=== PATIENT | female | born 1995 | race Caucasian/White ===

== ENCOUNTER 2019-01-12 13:38 | Emergency (ER) | payer OTHER ==
[2019-01-12 13:44] VITALS: BP 147/92
--- NOTE | 2019-01-12 14:13 | XRAY Report ---
Reason: pain/swelling Procedure Date: 01/12/2019 Accession Number: [id number] / [id number] Procedure: XR - Ankle 3 View RT CPT Code: FULL RESULT: EXAM: RIGHT ANKLE RADIOGRAPHY EXAM DATE: 01/12/2019 01:57 PM. CLINICAL HISTORY: Pain/swelling. COMPARISON: None. TECHNIQUE: 3 views. FINDINGS: Bones: Normal. No fractures or bone lesions. Joints: Normal. No effusion. No subluxations. The ankle mortise is normally aligned. Soft Tissues: Moderate soft tissue swelling is seen at right ankle. IMPRESSION: Moderate soft tissue swelling of right ankle. No acute displaced fracture or malalignment. RADIA
--- NOTE | 2019-01-12 14:21 | ED Physician Documentation ---
PD HPI LOWER EXT INJURY - Stated complaint Stated Complaint: ANKLE INJURY - Chief complaint Chief Complaint: Trauma Ext - History obtained from History obtained from: Patient - History of Present Illness PD HPI LOW EXT INJURY LOCATION: Right, Ankle Type of injury: Twist (inversion) Timing - onset: Today Timing - details: Abrupt onset, Still present (has swelling and bruising, and pain with weight bearing.) Worsened by: Moving Associated symptoms: Swelling, Discolored. No: Weakness, Numbness Similar symptoms before: Has not had sx before Recently seen: Not recently seen Review of Systems Skin: denies: Abrasion (s), Laceration (s) Musculoskeletal: reports: Joint swelling Neurologic: denies: Focal weakness, Numbness PD PAST MEDICAL HISTORY - Past Medical History Musculoskeletal: None - Present Medications Home Medications: Ambulatory Orders Medication Instructions Recorded Confirmed Hydrocodone/Acetaminophen [[place] 1 each PO Q6H PRN #12 tablet 01/12/19 5-325 Tablet] Naproxen 500 mg PO BID #20 tablet 01/12/19 - Allergies Allergies/Adverse Reactions: Allergies Allergy/AdvReac Type Severity Reaction Status Date / Time No Known Drug Allergies Allergy Verified 01/12/19 13:44 PD ED PE NORMAL - Vitals Vital signs reviewed: Yes - General General: Alert and oriented X 3, No acute distress, Well developed/nourished - Derm Derm: Normal color, Warm and dry - Extremities Extremities: Other (right ankle with lateral swelling and ecchymosis with significant swelling. Inversion stress painful so limited exam. Achilles not tender. Medially not tender, so seems like stable mortis. Foot not tender. ) - Neuro Neuro: Alert and oriented X 3, No motor deficit, No sensory deficit, Other (good color and cap refill in toes. ) Results - Vitals Vitals: Vital Signs - 24 hr 01/12/19 13:42 Temperature 37.0 C Heart Rate 96 Respiratory 17 Rate Blood Pressure 147/92 H O2 Saturation 100 Oxygen O2 Source Room air - Rads (name of study) right ankle Radiology: Prelim report reviewed (no fractures), EMP read contemporaneously, See rad report PD MEDICAL DECISION MAKING - ED course Complexity details: considered differential, d/w patient (has swelling and bruising laterally, so presume some partial ligament tears at least. Exam drake ited due to swelling and tenderness. No gross laxity noted. ) Departure - Departure Disposition: 01 Home, Self Care Clinical Impression: Moderate ankle sprain Qualifiers: Encounter type: initial encounter Laterality: right Qualified Code(s): S93.401A - Sprain of unspecified ligament of right ankle, initial encounter Condition: Stable Record reviewed to determine appropriate education?: Yes Instructions: ED Sprain Ankle W X Ray Prescriptions: Hydrocodone/Acetaminophen [[place] 5-325 Tablet] 1 each PO Q6H PRN #12 tablet PRN Reason: Pain Naproxen 500 mg PO BID #20 tablet Comments: Use the Kermit wrap as well as elevate and ice often to reduce swelling. Use the ankle brace when up and around for the next 3-4 weeks until well-healed. Crutches initially for the pain of weightbearing but is okay to progress weightbearing as tolerated over the next week or so. Naproxen or ibuprofen twice daily for pain and inflammation. Add Tylenol or hydrocodone as needed for pain. Follow-up if not well improved over the next week. This may take 3-4 weeks to fully heal up however. Discharge Date/Time: 01/12/19 15:02
[2019-01-12] MEDS ORDERED: HYDROcod/ACETAM 5/325 MG TABLET PO STA (14:48)
[2019-01-12] MEDS ORDERED: NAPROXEN 250 MG TABLET PO STA (14:48)
== END 2019-01-12 15:02 | disposition home or self-care (01) ==
LOC: ED 13:38
DX: S93.401A Sprain of unspecified ligament of right ankle, initial encounter (principal); X50.1XXA Overexertion from prolonged static or awkward postures, initial encounter
CPT/HCPCS: 73610; 99283; A9270

== ENCOUNTER 2019-01-28 18:51 | Emergency (ER) | payer OTHER ==
--- NOTE | 2019-01-28 19:12 | ED Physician Documentation ---
PD HPI FEMALE - Stated complaint Stated Complaint: FEMALE /BACK PX - Chief complaint Chief Complaint: UTI - History obtained from History obtained from: Patient - History of Present Illness Timing - onset: Other (2 days urinary frequency and burning. Has LBP with this, but no flank pain.) Review of Systems Ten Systems: 10 systems reviewed and negative Constitutional: denies: Fever, Chills GI: reports: Abdominal Pain. denies: Nausea, Vomiting : reports: Dysuria, Frequency PD PAST MEDICAL HISTORY - Past Medical History Musculoskeletal: None - Present Medications Home Medications: Ambulatory Orders Medication Instructions Recorded Confirmed Phenazopyridine HCl [Pyridium] 200 mg PO TID PRN #6 tablet 01/28/19 Sulfamethoxazole/Trimethoprim 1 each PO BID #14 tablet 01/28/19 [Sulfamethoxazole-Tmp Ds Tablet] - Allergies Allergies/Adverse Reactions: Allergies Allergy/AdvReac Type Severity Reaction Status Date / Time No Known Drug Allergies Allergy Verified 01/28/19 19:01 - Social History Does the pt smoke?: No Smoking Status: Never smoker Does the pt drink ETOH?: Yes Does the pt have substance abuse?: No PD ED PE NORMAL - Vitals Vital signs reviewed: Yes - General General: Alert and oriented X 3, No acute distress - Abdomen Abdomen: Normal bowel sounds, Soft, Non tender - Back Back: Other (R>L CVAT) - Extremities Extremities: No edema, No calf tenderness / cord - Neuro Neuro: Alert and oriented X 3, Normal speech - Psych Psych: Normal mood, Normal affect Results - Vitals Vitals: Vital Signs - 24 hr 01/28/19 01/28/19 18:57 19:35 Temperature 36.8 C 37.1 C Heart Rate 115 H 100 Respiratory 20 16 Rate Blood Pressure 134/93 H 121/78 O2 Saturation 100 98 Oxygen O2 Source Room air - Labs Labs: Laboratory Tests 01/28/19 18:55 Urine Color LT. YELLOW Urine Clarity CLEAR Urine pH 7.0 Ur Specific [place] <=1.005 Urine Protein NEGATIVE Urine Glucose (UA) NEGATIVE Urine Ketones NEGATIVE Urine Occult Blood SMALL H Urine Nitrite NEGATIVE Urine Bilirubin NEGATIVE Urine Urobilinogen 0.2 (NORMAL) Ur Leukocyte Esterase SMALL H Urine RBC 0-5 Urine WBC 4-5 Ur Squamous Epith Cells RARE Squamous Urine Bacteria None Seen Ur Microscopic Review INDICATED Urine Culture Comments INDICATED Urine HCG, Qual NEGATIVE Departure - Departure Disposition: 01 Home, Self Care Clinical Impression: Pyelonephritis Condition: Good Record reviewed to determine appropriate education?: Yes Instructions: Pyelonephritis Dc Prescriptions: Phenazopyridine HCl [Pyridium] 200 mg PO TID PRN #6 tablet PRN Reason: dysuria Sulfamethoxazole/Trimethoprim [Sulfamethoxazole-Tmp Ds Tablet] 1 each PO BID #14 tablet Comments: We will culture your urine, the results should be done in 48-72 hours. If an antibiotic change is necessary we will call you. Return if worse in the meantime, especially if you develop increasing flank pain, fevers, or cannot keep down the medication. Discharge Date/Time: 01/28/19 19:41
[2019-01-28 19:21] LABS: BILIRUBIN,URINE NEGATIVE (NEGATIVE); GLUCOSE, URINE (UA) NEGATIVE (NEGATIVE); KETONES,URINE (UA) NEGATIVE (NEGATIVE); LEUKOCYTE ESTERASE, URINE SMALL (NEGATIVE); NITRITE,URINE NEGATIVE (NEGATIVE); OCCULT BLOOD,URINE SMALL (NEGATIVE); PROTEIN,URINE NEGATIVE (NEGATIVE); UROBILINOGEN,URINE 0.2 (NORMAL) E.U./dL (NORMAL)
[2019-01-28 19:23] LABS: CLARITY,URINE CLEAR (CLEAR); HCG UR QUAL NEGATIVE
[2019-01-28] MEDS ORDERED: SULFAMETH/TRIMETH DS 800/160 MG TABLET PO STA (19:29)
[2019-01-28] MEDS ORDERED: PHENAZOPYRIDINE 100 MG TABLET PO STA (19:29)
[2019-01-28 19:35] LABS: BACTERIA,URINE None Seen /HPF (None Seen); RBC,URINE 0-5 /HPF (0-5); SQUAMOUS EPITHELIAL CELL,UR RARE Squamous (<= Few)
[2019-01-28 19:36] VITALS: BP 121/78
== END 2019-01-28 19:41 | disposition home or self-care (01) ==
LOC: ED 18:51
DX: N12 Tubulo-interstitial nephritis, not specified as acute or chronic (principal)
CPT/HCPCS: 81001; 81025; 87086; 99283; A9270; 81003; 87077; 87181

== ENCOUNTER 2019-08-29 19:11 | Emergency (ER) | payer OTHER ==
--- NOTE | 2019-08-29 20:55 | ED Physician Documentation ---
PD HPI URI - Stated complaint Stated Complaint: COUGH - Chief complaint Chief Complaint: Resp - History obtained from History obtained from: Patient - History of Present Illness Timing - onset: How many weeks ago (6) Timing duration: Weeks (6) Timing details: Gradual onset Associated symptoms: Fever (With the initial onset 6 weeks ago), Nasal congestion, Rhinorrhea (Green nasal mucus with blood in it), Sinus pain (Maxillary), Sore throat, Dry cough, Dyspnea. No: Ear pain, Hemoptysis, Chest pain, NVD Contributing factors: No: Sick contact, COPD / asthma Similar symptoms before: No diagnosis Recently seen: Not recently seen - Additional information Additional information: This is a 24-year-old woman who presents with her and son complains that she is been coughing for 6 weeks and is just seems to be increasing in severity. When her symptoms first started she had a bit of a fever she was taking DayQuil and then she started bringing up some green phlegm so she switched over the mucus now she continues coughing bringing up some green phlegm and coughing to the point that she is actually gagging and choking. She feels short of breath with the cough. She feels like there are "balloons" in her ears and swelling in her throat. She has green nasal mucus with blood in it and maxillary pressure. She also hurting in the front part of her throat. She denies any history of asthma and she is not a smoker. 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 Her menstrual cycle is irregular last menstrual period being in January but she denies being and has not done a test. 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 : None HEENT: None Psych: None Musculoskeletal: None Derm: None - Past Surgical History Past Surgical History: Yes General: Appendectomy - Present Medications Home Medications: Ambulatory Orders Medication Instructions Recorded Confirmed Phenazopyridine HCl [Pyridium] 200 mg PO TID PRN #6 tablet 01/28/19 Sulfamethoxazole/Trimethoprim 1 each PO BID #14 tablet 01/28/19 [Sulfamethoxazole-Tmp Ds Tablet] Amoxicillin 875 mg PO BID #20 tablet 08/29/19 - Allergies Allergies/Adverse Reactions: Allergies Allergy/AdvReac Type Severity Reaction Status Date / Time No Known Drug Allergies Allergy Verified 08/29/19 19:15 - Social History Does the pt smoke?: No Smoking Status: Never smoker Does the pt drink ETOH?: Yes Does the pt have substance abuse?: No - Immunizations Immunizations are current?: Yes - POLST Patient has POLST: No PD ED PE NORMAL - Vitals Vital signs reviewed: Yes - General General: Alert and oriented X 3, No acute distress, Well developed/nourished, Other (Obese 24-year-old in no acute distress.) - HEENT HEENT: Atraumatic, PERRL, EOMI, Ears normal, Moist mucous membranes (Status post tonsillectomy), Pharynx benign - Neck Neck: Supple, no meningeal sign, No adenopathy, Other (Thyroid is diffusely enlarged bilaterally and very tender. There is no erythema over the thyroid.). No: Thyroid normal - Cardiac Cardiac: RRR, Strong equal pulses. No: No murmur (There is a 2/6 systolic murmur heard at the left upper sternal border.) - Respiratory Respiratory: No respiratory distress, Clear bilaterally - Derm Derm: Normal color, Warm and dry, No rash Results - Vitals Vitals: Vital Signs - 24 hr 08/29/19 19:15 Temperature 37.5 C Heart Rate 98 Respiratory 17 Rate Blood Pressure 148/87 H O2 Saturation 100 Oxygen O2 Source Room air - Labs Labs: Laboratory Tests 08/29/19 08/29/19 08/29/19 21:04 21:04 21:04 WBC 12.8 H RBC 4.45 Hgb 13.3 Hct 40.1 MCV 90.1 MCH 29.9 MCHC 33.2 RDW 12.5 Plt Count 270 MPV 10.1 Neut # (Auto) 9.7 H Lymph # (Auto) 1.6 [place] # (Auto) 1.0 Eos # (Auto) 0.3 Baso # (Auto) 0.1 Absolute Nucleated RBC 0.00 Nucleated RBC % 0.0 Sodium 138 Potassium 3.2 L Chloride 102 Carbon Dioxide 26 Anion Gap 10.0 BUN 12 Creatinine 0.7 Estimated GFR (MDRD) 103 Glucose 98 Calcium 9.2 TSH 8.99 H Thyroxine (T4) 8.58 Free T3 pg/mL Serum HCG, Qual 08/29/19 08/29/19 21:04 21:04 WBC RBC Hgb Hct MCV MCH MCHC RDW Plt Count MPV Neut # (Auto) Lymph # (Auto) [place] # (Auto) Eos # (Auto) Baso # (Auto) Absolute Nucleated RBC Nucleated RBC % Sodium Potassium Chloride Carbon Dioxide Anion Gap BUN Creatinine Estimated GFR (MDRD) Glucose Calcium TSH Thyroxine (T4) Free T3 pg/mL 3.28 Serum HCG, Qual NEGATIVE - Rads (name of study) CXR Radiology: EMP read contemporaneously (Neg acute) PD MEDICAL DECISION MAKING - ED course Complexity details: reviewed results, re-evaluated patient, d/w patient, d/w family ED course: Chest x-ray is clear without pneumonia. Patient's TSH is actually elevated. I must start her on an anti-inflammatory medication. I have added free T3 and T4 to her lab studies. Plan to treat with amoxicillin for sinusitis and upper respiratory infection. I recommended that she establish follow-up with a primary care provider to have her thyroid testing followed up and management of her goiter. Departure - Departure Disposition: 01 Home, Self Care Clinical Impression: Thyromegaly Sinusitis Qualifiers: Sinusitis location: maxillary Chronicity: acute Recurrence: not specified as recurrent Qualified Code(s): J01.00 - Acute maxillary sinusitis, unspecified URI (upper respiratory infection) Qualifiers: URI type: unspecified URI Qualified Code(s): J06.9 - Acute upper respiratory infection, unspecified Condition: Good Instructions: ED Sinusitis Abx Tx Follow-Up: Erika Bruno MD [Primary Care Provider] - Prescriptions: Amoxicillin 875 mg PO BID #20 tablet Comments: Take the amoxicillin twice a day as prescribed. Take naproxen/Aleve [id number] twice a day for the next 5 to 7 days. Call your primary care provider's office on Sunday and let them know you are in the emergency department and had abnormal thyroid screening. They will need to follow-up on the confirmatory testing that is been ordered. Recheck with your primary care provider regarding the abnormal thyroid screening. Return to the emergency department if you have increasing pain, unable to swallow, develop fever or other problems arise.
[2019-08-29 21:10] LABS: BASOPHILS # (AUTO) 0.1 10^3/uL (0.0-0.1); BASOPHILS % (AUTO) 0.8 %; EOSINOPHILS # (AUTO) 0.3 10^3/uL (0.0-0.7); EOSINOPHILS % (AUTO) 2.6 %; HGB - HEMOGLOBIN 13.3 g/dL (12.0-16.0); LYMPHOCYTES # (AUTO) 1.6 10^3/uL (1.5-3.5); LYMPHOCYTES % (AUTO) 12.6 %; MEAN CORPUSCULAR HEMOGLOBIN 29.9 pg (27.0-31.0); MEAN CORPUSCULAR HGB CONC 33.2 g/dL (32.0-36.0); MEAN CORPUSCULAR VOLUME 90.1 fL (81.0-99.0); MEAN PLATELET VOLUME 10.1 fL (7.9-10.8); MONOCYTES % (AUTO) 7.7 %; NEUTROPHILS # (AUTO) 9.7 10^3/uL (1.5-6.6); NEUTROPHILS % (AUTO) 75.9 %; PLT - PLATELET COUNT 270 10^3/uL (130-450); RED BLOOD COUNT 4.45 10^6/uL (4.20-5.40); RED CELL DISTRIBUTION WIDTH 12.5 % (12.0-15.0); WHITE BLOOD COUNT 12.8 x10^3/uL (4.8-10.8)
[2019-08-29 21:25] LABS: CALCIUM 9.2 mg/dL (8.5-10.3); CREATININE 0.7 mg/dL (0.4-1.0)
--- NOTE | 2019-08-29 21:38 | XRAY Report ---
Reason: cough Procedure Date: 08/29/2019 Accession Number: [id number] / [id number] Procedure: XR - Chest 2 View X-Ray CPT Code: 45190 Final Report FULL RESULT: EXAM: CHEST RADIOGRAPHY EXAM DATE: 08/29/2019 09:17 PM. CLINICAL HISTORY: Productive cough for 6 weeks. COMPARISON: None. TECHNIQUE: 2 views. FINDINGS: Lungs/Pleura: No focal opacities evident. No pleural effusion. No pneumothorax. Normal volumes. Mediastinum: Heart and mediastinal contours are unremarkable. Other: No bony abnormality identified. IMPRESSION: Normal 2-view chest radiography. RAD[facility]
[2019-08-29 21:39] LABS: HCG,QUALITATIVE BLOOD NEGATIVE
[2019-08-29 21:54] LABS: T4 (THYROXINE) 8.58 ug/dL (6.09-12.23)
[2019-08-29 21:58] LABS: THYROID STIMULATING HORMONE 8.99 uIU/mL (0.34-5.60)
[2019-08-29 22:20] VITALS: BP 143/92
[2019-08-29 22:53] LABS: FREE T4 (FREE THYROXINE) 0.81 ng/dL (0.58-1.64)
[2019-08-29 22:57] LABS: TOTAL T3 1.32 ng/mL (0.87-1.78)
== END 2019-08-29 22:45 | disposition home or self-care (01) ==
LOC: ED 19:11
DX: J01.00 Acute maxillary sinusitis, unspecified (principal); J06.9 Acute upper respiratory infection, unspecified; E01.0 Iodine-deficiency related diffuse (endemic) goiter; R01.1 Cardiac murmur, unspecified
CPT/HCPCS: 36415; 71046; 80048; 84436; 84439; 84443; 84480; 84481; 84703; 85025; 99283; 99284

== ENCOUNTER 2022-03-06 15:22 | Emergency (ER) | payer OTHER ==
[2022-03-06 15:41] VITALS: BP 147/79
--- NOTE | 2022-03-06 15:55 | XRAY Report ---
PROCEDURE: Ankle 3 View RT INDICATIONS: injury/pain TECHNIQUE: 3 views of the ankle were acquired. COMPARISON: 01/12/2019 FINDINGS: Bones: No fractures or dislocations. Ankle mortise is normally aligned. No suspicious bony lesions . The talar dome demonstrates an unremarkable appearance. Incidental note is made of an accessory ossicle, a multifocal os peroneum. Soft tissues: No tibiotalar joint effusion. Achilles tendon appears normal. IMPRESSION: No acute plain film abnormality is seen. Reviewed by: Clayton Sweet MD on 03/06/2022 2:53 PM [email or web address] Approved by: Clayton Sweet MD on 03/06/2022 2:53 PM [place] Station ID: [id number]
--- NOTE | 2022-03-06 16:26 | ED Physician Documentation ---
PD HPI LOWER EXT INJURY - Stated complaint Stated Complaint: R ANKLE INJ - Chief complaint Chief Complaint: Trauma Ext - History obtained from History obtained from: Patient - Additional information Additional information: Patient comes emergency department chief complaint of right ankle pain and swelling over right lateral malleolus after rolling her ankle in the driveway while walking earlier this afternoon. No other complaints at this time. She states she has previously sprained, but not fractured, this ankle. Review of Systems Ten Systems: 10 systems reviewed and negative Constitutional: reports: Reviewed and negative Eyes: reports: Reviewed and negative Ears: reports: Reviewed and negative Nose: reports: Reviewed and negative Throat: reports: Reviewed and negative Cardiac: reports: Reviewed and negative Respiratory: reports: Reviewed and negative GI: reports: Reviewed and negative : reports: Reviewed and negative Skin: reports: Reviewed and negative Musculoskeletal: reports: Joint pain, Joint swelling, Pain with weight bearing Neurologic: reports: Reviewed and negative Psychiatric: reports: Reviewed and negative Endocrine: reports: Reviewed and negative Immunocompromised: reports: Reviewed and negative PD PAST MEDICAL HISTORY - Past Medical History Cardiovascular: None Respiratory: None Neuro: None Endocrine/Autoimmune: None GI: 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 HEENT: None Psych: None Musculoskeletal: None Derm: None - Past Surgical History Past Surgical History: Yes General: Appendectomy - Present Medications Home Medications: Ambulatory Orders Medication Instructions Recorded Confirmed Phenazopyridine HCl [Pyridium] 200 mg PO TID PRN #6 tablet 01/28/19 Sulfamethoxazole/Trimethoprim 1 each PO BID #14 tablet 01/28/19 [Sulfamethoxazole-Tmp Ds Tablet] Amoxicillin 875 mg PO BID #20 tablet 08/29/19 - Allergies Allergies/Adverse Reactions: Allergies Allergy/AdvReac Type Severity Reaction Status Date / Time No Known Drug Allergies Allergy Verified 03/06/22 15:41 - Social History Does the pt smoke?: No Smoking Status: Never smoker Does the pt drink ETOH?: Yes Does the pt have substance abuse?: No - Immunizations Immunizations are current?: Yes - POLST Patient has POLST: No PD ED PE NORMAL - Vitals Vital signs reviewed: Yes - General General: Alert and oriented X 3, No acute distress, Well developed/nourished - HEENT HEENT: Atraumatic, PERRL, EOMI, Moist mucous membranes - Neck Neck: Supple, no meningeal sign - Cardiac Cardiac: Strong equal pulses - Respiratory Respiratory: No respiratory distress - Derm Derm: Normal color, Warm and dry, No rash - Extremities Extremities: No deformity, Other (Moderate tenderness and mild edema over right lateral malleolus. Mild tenderness over dorsum of foot proximally. No deformity. No medial malleolar tenderness) - Neuro Neuro: Alert and oriented X 3, first responder 2-12 intact, No motor deficit, No sensory deficit, Normal speech - Psych Psych: Normal mood, Normal affect Results - Vitals Vitals: Vital Signs - 24 hr 03/06/22 15:38 Temperature 36.6 C Heart Rate 96 Respiratory 16 Rate Blood Pressure 147/79 H O2 Saturation 96 Oxygen O2 Source Room air - Rads (name of study) R ankle XR Radiology: Final report received, EMP read indepedently, See rad report (Negative) PD MEDICAL DECISION MAKING - ED course Complexity details: reviewed results, re-evaluated patient, considered differential, d/w patient ED course: The patient was placed in and air splint. She was instructed regarding symptomatic management of her injury at home, as well as usual indications for return. Her x-ray was negative for fracture. Departure - Departure Disposition: 01 Home, Self Care Clinical Impression: Right ankle sprain Qualifiers: Encounter type: initial encounter Involved ligament of ankle: unspecified ligament Qualified Code(s): S93.401A - Sprain of unspecified ligament of right ankle, initial encounter Condition: Stable Instructions: ED Sprain Ankle Comments: You may use ice packs and ibuprofen or Tylenol to help with the discomfort. You may use the air splint as long as you need to help with stabilization while walking. Your x-ray is negative and there is no sign of any broken bones. You most likely sprained your ankle, and this will get better on its own in the next several weeks.
== END 2022-03-06 16:37 | disposition home or self-care (01) ==
LOC: ED 15:22
DX: S93.401A Sprain of unspecified ligament of right ankle, initial encounter (principal); X50.1XXA Overexertion from prolonged static or awkward postures, initial encounter; Y92.008 Other place in unspecified non-institutional (private) residence as the place of occurrence of the external cause
CPT/HCPCS: 99282; 99283